=== PATIENT | female | born 1975 | race Caucasian/White ===

== ENCOUNTER → 2017-05-18 | Outpatient (CLI) | payer OTHER ==
[~2017-05-18] MED LIST: LEVO100T84 PO; MONT1TAB3 PO; MTR600X PO; MULTTAB58 PO; OXYC-643 PO
== END | disposition home or self-care (01) ==
LOC: C.LAB1850 09:52
PROVIDERS: ATTEND Internal Medicine
DX: E03.9 Hypothyroidism, unspecified (principal)

== ENCOUNTER 2017-08-21 10:37 | Emergency (ER) | payer OTHER ==
[~2017-08-21] VITALS: Ht 172.7 cm; Wt 84.0 kg
[2017-08-21 10:43] VITALS: TEMP 36.7; Ht 172.7 cm; Wt 84.0 kg
[2017-08-21] MEDS ORDERED: LEVO50TA PO (11:11)
[2017-08-21] MEDS ORDERED: AMOX500C3 PO (11:11)
[2017-08-21] MEDS ORDERED: SODIUM CHLORIDE 0.9% 1000ML 1,000 ML IV STA (11:26)
--- NOTE | 2017-08-21 11:31 | EMERGENCY ROOM VISIT NOTE ---
History First contact with patient: 11:04 Chief Complaint: DIARRHEA Stated Complaint: EXTREME DIARRHEA 3 DAY FEVER Nursing Triage Summary: Diarrhea since . Nausea, no vomiting. c/o abdominal pain and burning with urination. Dx with sinuisitis on , placed on amoxcillin, diarrhea since then. History of Present Illness The patient is a 42 year old female who presents to the Emergency Room with complaints of diarrhea. The patient reports that she has had diarrhea for the past 3 days. She states that she has had frequent diarrhea anytime that she eats or drinks anything. She states that she has been going every 10-15 minutes. She has been slightly nauseous but denies vomiting. She has some cramping abdominal discomfort with bowel movements but denies pain at rest. She was seen at her primary care provider last week and started on amoxicillin. She states that her diarrhea began before taking the antibiotics. She denies any recent uncooked food sources, foreign travel or unknown water sources. She rates her overall discomfort a 2/10. She denies any blood in her stools. Review of Systems A complete 10 point review of systems was reviewed with the patient with pertinent positives and negatives as per history of present illness. All else were negative. Past Medical/Surgical History Medical Problems: (1) No significant past medical history Surgical Problems: (1) No significant past surgical history Social History Smoking Status: Current Some Day Smoker Alcohol Use: occasionally Marital Status: Occupation Status: employed Current/Historical Medications Scheduled Amoxicillin (Amoxil), 500 MG PO BID Levothyroxine Sodium (Synthroid), Unknown Dose PO DAILY Physical Exam Vital Signs Date Time Temp Pulse Resp B/P (MAP) Pulse Ox O2 Delivery O2 Flow Rate FiO2 08/21/17 14:06 78 16 122/78 98 08/21/17 12:33 88 16 131/85 99 08/21/17 10:43 36.7 95 18 130/96 98 Room Air Physical Exam VITALS: Vitals are noted on the nurse's note and reviewed by myself. Vital signs stable. GENERAL: This is a 42-year-old female, in no acute distress, nondiaphoretic, well-developed well-nourished. HEENT: Normocephalic. PERRLA. Mucous membranes moist. HEART: Regular rate and rhythm without murmurs gallops or rubs. LUNGS: Clear to auscultation bilaterally without wheezes, rales or rhonchi. ABDOMEN: Positive bowel sounds x 4. Soft, nontender to palpation. NEURO: Patient was alert and oriented to person place and time. Medical Decision & Procedures Laboratory Results 08/21/17 11:34 Red Blood Count 5.38, Mean Corpuscular Volume 87.5, Mean Corpuscular Hemoglobin 30.9, Mean Corpuscular Hemoglobin Concent 35.2, Mean Platelet Volume 9.4, Neutrophils (%) (Auto) 63.4, Lymphocytes (%) (Auto) 23.5, Monocytes (%) (Auto) 9.4, Eosinophils (%) (Auto) 3.3, Basophils (%) (Auto) 0.4, Neutrophils # (Auto) 3.30, Lymphocytes # (Auto) 1.22, Monocytes # (Auto) 0.49, Eosinophils # (Auto) 0.17, Basophils # (Auto) 0.02 08/21/17 11:34 Test 08/21/17 11:34 08/21/17 12:03 08/21/17 13:50 White Blood Count 5.20 K/uL (4.8-10.8) Red Blood Count 5.38 M/uL (4.2-5.4) Hemoglobin 16.6 g/dL (12.0-16.0) Hematocrit 47.1 % (37-47) Mean Corpuscular Volume 87.5 fL (80-100) Mean Corpuscular Hemoglobin 30.9 pg (25-34) Mean Corpuscular Hemoglobin Concent 35.2 g/dl (32-36) Platelet Count 205 K/uL (130-400) Mean Platelet Volume 9.4 fL (7.4-10.4) Neutrophils (%) (Auto) 63.4 % Lymphocytes (%) (Auto) 23.5 % Monocytes (%) (Auto) 9.4 % Eosinophils (%) (Auto) 3.3 % Basophils (%) (Auto) 0.4 % Neutrophils # (Auto) 3.30 K/uL (1.4-6.5) Lymphocytes # (Auto) 1.22 K/uL (1.2-3.4) Monocytes # (Auto) 0.49 K/uL (0.11-0.59) Eosinophils # (Auto) 0.17 K/uL (0-0.5) Basophils # (Auto) 0.02 K/uL (0-0.2) RDW Standard Deviation 39.7 fL (36.4-46.3) RDW Coefficient of Variation 12.5 % (11.5-14.5) Immature Granulocyte % (Auto) 0.0 % Immature Granulocyte # (Auto) 0.00 K/uL (0.00-0.02) Anion Gap 10.0 mmol/L (3-11) Est Creatinine Clear Calc Drug Dose 111.3 ml/min Estimated GFR () 115.0 Estimated GFR (Non- 99.2 BUN/Creatinine Ratio 16.7 (10-20) Calcium Level 8.6 mg/dl (8.5-10.1) Total Bilirubin 0.6 mg/dl (0.2-1) Aspartate Amino Transf (AST/SGOT) 53 U/L (15-37) Alanine Aminotransferase (ALT/SGPT) 73 U/L (12-78) Alkaline Phosphatase 74 U/L (45-117) Total Protein 7.5 gm/dl (6.4-8.2) Albumin 3.4 gm/dl (3.4-5.0) Globulin 4.1 gm/dl (2.5-4.0) Albumin/Globulin Ratio 0.8 (0.9-2) Urine Color YELLOW Urine Appearance CLEAR (CLEAR) Urine pH 5.5 (4.5-7.5) Urine Specific Monette 1.014 (1.000-1.030) Urine Protein NEG (NEG) Urine Glucose (UA) NEG (NEG) Urine Ketones 1+ (NEG) Urine Occult Blood 1+ (NEG) Urine Nitrite NEG (NEG) Urine Bilirubin NEG (NEG) Urine Urobilinogen NEG (NEG) Urine Leukocyte Esterase LARGE (NEG) Urine WBC (Auto) 10-30 /hpf (0-5) Urine RBC (Auto) 0-4 /hpf (0-4) Urine Hyaline Casts (Auto) 0 /lpf (0-5) Urine Epithelial Cells (Auto) >30 /lpf (0-5) Urine Bacteria (Auto) NEG (NEG) Urine Test NEG (NEG) Medications Administered Medications (Trade) Dose Ordered Sig/Zeke Route Start Time Stop Time Status Last Admin Dose Admin Sodium Chloride 1,000 ml @ 999 mls/hr Q1H1M STAT IV 08/21/17 11:26 08/21/17 12:26 DC 08/21/17 11:38 999 MLS/HR Medical Decision Differential diagnosis includes gastroenteritis, colitis, diarrheal illness, C. difficile, among others. The patient is a 42-year-old female who presents today complaining of diarrhea. Labs revealed no leukocytosis or concerning electrolyte abnormalities. Hemoglobin is slightly elevated suggesting hemoconcentration. Urinalysis was suggestive of contamination. Urine was negative. Stool studies were collected. C. difficile testing was negative. Additional studies are pending. Patient was advised to stay well-hydrated and follow up with her primary care provider this week if symptoms are persisting or worsening. She is afebrile here and not tachycardic. Based on the patient's presentation and work up, I feel the patient is stable for outpatient treatment. The patient was educated to return to the emergency department for any worsening of their current condition or new/concerning symptoms. She will follow up with her PCP. Medication Reconcilliation Current Medication List: was personally reviewed by me Blood Pressure Screening Patient's blood pressure: Normal blood pressure Impression Primary Impression: Diarrhea Departure Information Dispostion Home / Self-Care Condition GOOD Referrals RV. Rodriguez MD (PCP) Patient Instructions [facility] Additional Instructions Some of your cultures are still pending. We will contact you if these become positive. For pain control, you can use the following [id number] medicines (if >12 yo): - Regular strength (325mg/tab) Tylenol (acetaminophen) 2 tabs every 4-6 hours as needed. Do not exceed 12 tablets in a 24 hour period. Avoid taking more than 4 grams (4000 mg) of Tylenol per day. This includes any other sources of acetaminophen you may take on a regular basis. - Regular strength (200 mg/tab) Advil (ibuprofen) 1-2 tabs every 4-6 hours as needed. Do not exceed a dose of 3200 mg per day. Rest and drink plenty of fluids. Follow-up with your primary care provider this week if he has persistent symptoms. Return to the emergency department with abdominal pain, vomiting, high fevers or any other new/concerning symptoms. Problem Qualifiers Primary Impression: Diarrhea Diarrhea type: unspecified type Qualified Codes: R19.7 - Diarrhea, unspecified
[2017-08-21 11:49] LABS: BASO % 0.4 %; BASO ABS # 0.02 K/uL (0-0.2); EOS % 3.3 %; EOS ABS # 0.17 K/uL (0-0.5); HEMATOCRIT 47.1 % (37-47); HEMOGLOBIN 16.6 g/dL (12.0-16.0); LYMPH % 23.5 %; LYMPH ABS # 1.22 K/uL (1.2-3.4); MEAN CELL VOLUME 87.5 fL (80-100); MEAN CORPUSCULAR HEMOGLOBIN 30.9 pg (25-34); MEAN CORPUSCULAR HGB CONC 35.2 g/dl (32-36); MEAN PLATELET VOLUME 9.4 fL (7.4-10.4); MONO % 9.4 %; MONO ABS # 0.49 K/uL (0.11-0.59); NEUT % 63.4 %; PLATELET COUNT 205 K/uL (130-400); RED CELL DISTRIBUTION WIDTH CV 12.5 % (11.5-14.5); RED CELL DISTRIBUTION WIDTH SD 39.7 fL (36.4-46.3)
[2017-08-21 12:09] LABS: ALBUMIN 3.4 gm/dl (3.4-5.0); CALCIUM 8.6 mg/dl (8.5-10.1); CREATININE 0.74 mg/dl (0.60-1.20); POTASSIUM 3.3 mmol/L (3.5-5.1)
[2017-08-21 12:12] LABS: TOTAL PROTEIN 7.5 gm/dl (6.4-8.2)
[2017-08-21 14:06] VITALS: BP 122/78; PULSE 78; O2SAT 98
--- NOTE | 2017-08-24 14:13 | Pharmacy Progress Note ---
ED Pharmacist Culture FollowUp Date of Service: Aug 24, 2017. Patient's urine cx from 08/21 is growing 20,000 CFU/mL klebsiella pneumoniae plus low counts of other mixed marce. UA also contained > 30 epis. This specimen appears to be contaminated Pt was seen in the ER c/o diarrhea, nausea and abd pain as well as burning w/ urination. These symptoms started after she began Amoxil Rx for sinusitis. Of note, Amoxil will not cover kleb pn (per antibiogram 0 isolates sensitive) Stool cx negative for c diff, salmonella, shigella and campy. Reviewed results w/ Dr Deleon. Plan was to contact pt for clinical f/u and recommend repeat urine collection w/ PCP if she is having urinary symptoms. Spoke with patient over the phone, she is feeling improved - able to keep more fluids down. She states she still has some mild burning with urination. I advised the patient to f/u with her PCP in the next 24 hours as the burning w/ urination could be a sign of UTI. Patient stated she would do so.
== END 2017-08-21 14:07 | disposition home or self-care (01) ==
LOC: C.EDB 10:40 → C.EDC 14:07
DX: R19.7 Diarrhea, unspecified (principal); R11.0 Nausea; F17.200 Nicotine dependence, unspecified, uncomplicated; D59.9 Acquired hemolytic anemia, unspecified

== ENCOUNTER → 2017-08-25 | Outpatient (CLI) | payer OTHER ==
[~2017-08-25] MED LIST changes: +AMOX500C3 PO; -LEVO100T84 PO; +LEVO50TA PO; -MONT1TAB3 PO; -MTR600X PO; -MULTTAB58 PO; -OXYC-643 PO
== END | disposition home or self-care (01) ==
LOC: C.LAB1850 07:35
PROVIDERS: ATTEND Internal Medicine
DX: R82.90 Unspecified abnormal findings in urine (principal)

== ENCOUNTER → 2017-09-08 | Outpatient (CLI) | payer OTHER | END | disposition home or self-care (01) | LOC: C.LAB1850 07:32 | PROVIDERS: ATTEND Internal Medicine | DX: R82.90 Unspecified abnormal findings in urine (principal) ==